=== PATIENT | female | born 1960 | race Two or more races ===

== ENCOUNTER 2025-05-26 15:17 | Emergency (ER) | payer MEDICAID, SELFPAY ==
[2025-05-26 15:28] VITALS: BP 156/87; PULSE 59; RESP 18; TEMP 36.3; O2SAT 97
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
--- NOTE | 2025-05-26 15:45 | XR_ITS ---
Examination: CT brain head without contrast. 2-D sagittal coronal reconstructions Date and time of exam: May 26, 2025, 1622 hours INDICATIONS: Patient fell today injury to the head, head pain CTDI: vol (mGy): 48.4 DLP: (mGycm): 910 Technique: Multiple CT axial sections of the brain have been obtained, 5 mm slice thickness. Contrast has not been administered. 2-D sagittal, coronal reconstructions have been obtained Low dose protocols were performed. One or more of the following dose reduction techniques were used; automated exposure control, adjustment of the mA and/or KV according to patient size, use of iterative reconstruction technique. Findings: No significant ventricular enlargement. Intra-axial or extra-axial hemorrhage density is not seen. No mass effect or midline shift Basal cisterns are not remarkable. Fourth ventricle is midline. Cranial vault intact. Impression: Negative for acute hemorrhage, mass effect or midline shift
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
[2025-05-26 15:46] VITALS: PULSE 64; RESP 18; O2SAT 99
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
--- NOTE | 2025-05-26 17:26 | PRELIM_ITS ---
CT scan of the cervical spine without intravenous contrast (axial sections with sagittal and coronal reformats) May 26, 2025 1622 hours Clinical History: fall No prior study is available for comparison. Findings: The bones are osteopenic. There is no fracture or traumatic subluxation. Straightening of the cervical spine is identified, which may be related to muscle spasm. Mild degenerative changes are noted in the form of multilevel marginal osteophytes, decreased disc spaces and facet arthropathy, most marked at the C5-C6 and C6-C7 levels causing mild spinal canal narrowing and neural foraminal narrowing. The prevertebral soft tissues are unremarkable. Impression: No evidence of fracture or traumatic subluxation. Degenerative changes as described above. Report Electronically Signed By: Peewee Magaña 05/26/2025 5:25:48 PM [EST]
--- NOTE | 2025-05-26 17:27 | PRELIM_ITS ---
CT scan of the head without intravenous contrast (axial sections with sagittal and coronal reformats) May 26, 2025 1622 hours Clinical History: fall No prior study is available for comparison. Findings: There is no evidence of intracranial hemorrhage, mass effect or midline shift. There are periventricular white matter hypodensities, compatible with chronic small vessel ischemia. The CSF spaces are prominent consistent with volume loss. Basal ganglia calcifications are present bilaterally. The calvarium is intact. The mastoid air cells and the visualized paranasal sinuses are clear. There is dural calcification along the anterior falx. A 6 mm calcification in the left frontal lobe (axial images 8/41 ), which may represent a calcified granuloma. Impression: No evidence of intracranial hemorrhage, midline shift or calvarial fracture. Periventricular chronic small vessel ischemia and volume loss. Report Electronically Signed By: Peewee Magaña 05/26/2025 5:26:32 PM [EST]
[2025-05-26 18:21] VITALS: BP 185/79; PULSE 57; RESP 18; TEMP 36.7; O2SAT 99
[2025-05-26 19:56] VITALS: BP 175/85; PULSE 65; RESP 14; TEMP 37; O2SAT 99
== END 2025-05-26 19:57 | disposition home or self-care (01) ==
PROVIDERS: Emergency Provider Emergency Medicine
DX: S00.93XA Contusion of unspecified part of head, initial encounter (principal); V19.9XXA Pedal cyclist (driver) (passenger) injured in unspecified traffic accident, initial encounter; Y93.55 Activity, bike riding
CPT/HCPCS: 70450; 71045; 72125; 73502; 73560; 99283